=== PATIENT | female | born 1940 | race Caucasian/White ===

== ENCOUNTER 2024-02-11 09:03 | Inpatient (IN) | payer MEDICARE, OTHER ==
[2024-02-11] MEDS: Sodium Chloride 0.9% 10 ML Syringe FLUSH SCH ×2 (15:41→16:16)
[2024-02-11] MEDS ORDERED: Bisacodyl 10 MG Supp RECTAL PRN (15:47)
[2024-02-11] MEDS ORDERED: Nystatin Topical Powder 15 GM Bottle TOP PRN (15:47)
[2024-02-11] MEDS ORDERED: Mineral Oil/Petrolatum/Phenylephrine/Shark Liver Oil Oint 57 GM Tube RECTAL PRN (16:07)
[2024-02-11] MEDS ORDERED: Naloxone 0.4 MG/ML SDV IVPUSH PRN (16:11)
[2024-02-11] MEDS: Diclofenac Sodium 1% Gel 100 GM Tube TOP SCH (16:16)
[2024-02-11] MEDS: Gabapentin 300 MG Cap PO SCH (16:17)
[2024-02-11] MEDS: oxyCODONE 5 MG Tab PO PRN (16:29)
[2024-02-11] MEDS ORDERED: Non-Formulary Medication 1 Each TOP PRN (16:48)
[2024-02-11] MEDS: Aspirin 81 MG Tab.Chew PO SCH (17:36)
[2024-02-11] MEDS ORDERED: RIFAMPIN 300 MG PO SCH (18:00)
[2024-02-11] MEDS: ClonazePAM 0.5 MG Tab PO PRN (19:42)
[2024-02-11] MEDS: Escitalopram 10 MG Tab PO SCH (19:43)
[2024-02-11] MEDS: atorvaSTATin 20 MG Tab PO SCH (19:43)
[2024-02-11] MEDS: Amitriptyline 25 MG Tab PO SCH (19:43)
[2024-02-11] MEDS: Rifampin 150 MG Cap PO SCH (19:52)
[2024-02-12] MEDS: Timolol Maleate 0.5% Ophth Soln 5 ML Bottle EYEBOTH SCH (07:31)
[2024-02-12] MEDS: Hydrochlorothiazide 25 MG Tab PO SCH (07:32)
[2024-02-12] MEDS: Potassium Chloride 10 MEQ Tab.ER PO SCH (07:35)
[2024-02-12] MEDS: Cholecalciferol (Vitamin D3) 25 MCG Tab PO SCH (07:39)
[2024-02-12] MEDS: Hydroxychloroquine 200 MG Tab PO SCH (07:40)
[2024-02-12] MEDS ORDERED: Non-Formulary Medication 1 Each TOP PRN (12:10)
[2024-02-12] MEDS: Sodium Chloride 0.9% 10 ML Syringe FLUSH PRN (16:09)
[2024-02-12] MEDS: LIDOCAINE 5% TOP PRN (16:09)
[2024-02-12] MEDS: Acetaminophen 325 MG Tab PO PRN (19:14)
[2024-02-12] MEDS: Atropine/Diphenoxylate 0.025-2.5 MG Tab PO PRN (19:26)
[2024-02-13] MEDS: oxyCODONE 5 MG Tab PO ONE (17:12)
[2024-02-13] MEDS: Polyvinyl Alcohol 1.4% Ophth Soln 15 ML Bottle EYEBOTH PRN (17:38)
[2024-02-13] MEDS: Cyclobenzaprine 10 MG Tab PO SCH (17:40)
[2024-02-13] MEDS: ClonazePAM 0.5 MG Tab PO SCH ×2 (20:05→20:47)
[2024-02-13] MEDS: oxyCODONE 5 MG Tab PO SCH (20:05)
[2024-02-15] MEDS: oxyCODONE 5 MG Tab PO PRN (13:21)
[2024-02-15 19:27] LABS: BASOPHILS ABSOLUTE AUTO 0.11 K/uL (0.00-0.20); BASOPHILS PERCENT AUTO 1.1 % (0.0-2.0); EOSINOPHILS ABSOLUTE AUTO 0.18 K/uL (0.00-0.50); EOSINOPHILS PERCENT AUTO 1.8 % (0.0-5.0); HEMATOCRIT 28.2 % (34.0-46.0); HEMOGLOBIN 8.4 g/dL (11.7-15.5); LYMPHOCYTES ABSOLUTE AUTO 0.44 K/uL (0.50-3.50); LYMPHOCYTES PERCENT AUTO 4.3 % (10.0-50.0); MEAN CORPUSCULAR HEMOGLOBIN 23.6 pg (28.2-33.3); MEAN CORPUSCULAR HGB CONC 29.8 g/dL (31.7-36.0); MEAN CORPUSCULAR VOLUME 79.2 fL (84.0-98.0); MONOCYTES ABSOLUTE AUTO 1.27 K/uL (0.00-1.00); MONOCYTES PERCENT AUTO 12.4 % (2.0-14.0); NEUTROPHILS ABSOLUTE AUTO 8.24 K/uL (1.40-7.00); NEUTROPHILS PERCENT AUTO 80.4 % (45.0-80.0); PLATELET COUNT,PLT 550 K/uL (150-350); RED BLOOD CELL COUNT 3.56 M/uL (3.77-5.09); RED CELL DISTRIBUTION WIDTH 18.3 % (11.2-14.1); WHITE BLOOD CELL COUNT,WBC 10.2 K/uL (4.0-10.2)
[2024-02-15 20:01] LABS: BLOOD UREA NITROGEN,BUN 26 mg/dL (7-18); CALCIUM 8.3 mg/dL (8.5-10.1); CARBON DIOXIDE,CO2 33.6 mmol/L (21.0-32.0); CHLORIDE,CL 97 mmol/L (98-107); CREATININE 0.82 mg/dL (0.51-1.17); GLUCOSE RANDOM 123 mg/dL (70-99); POTASSIUM,K 3.5 mmol/L (3.5-5.1); SODIUM,NA 135 mmol/L (136-145)
[2024-02-15 20:03] LABS: ANION GAP 7.9 meq/L (7-15); ESTIMATED GFR 70 mL/min (>=60)
[2024-02-16] MEDS: Acetaminophen 325 MG Tab PO SCH (21:17)
[2024-02-17] MEDS: oxyCODONE 5 MG Tab PO PRN (19:08)
[2024-02-19] MEDS: Al and Mag Hydroxide/Diphenhydramine/Lidocaine/Simethicone 237 ML Bottle PO PRN ×2 (08:39→22:07)
[2024-02-19 10:05] LABS: BASOPHILS ABSOLUTE AUTO 0.02 K/uL (0.00-0.20); BASOPHILS PERCENT AUTO 0.2 % (0.0-2.0); EOSINOPHILS ABSOLUTE AUTO 0.23 K/uL (0.00-0.50); EOSINOPHILS PERCENT AUTO 2.8 % (0.0-5.0); HEMATOCRIT 30.6 % (34.0-46.0); LYMPHOCYTES ABSOLUTE AUTO 0.89 K/uL (0.50-3.50); LYMPHOCYTES PERCENT AUTO 10.8 % (10.0-50.0); MEAN CORPUSCULAR HEMOGLOBIN 23.5 pg (28.2-33.3); MEAN CORPUSCULAR HGB CONC 29.4 g/dL (31.7-36.0); MEAN CORPUSCULAR VOLUME 79.9 fL (84.0-98.0); MONOCYTES ABSOLUTE AUTO 0.75 K/uL (0.00-1.00); MONOCYTES PERCENT AUTO 9.1 % (2.0-14.0); NEUTROPHILS ABSOLUTE AUTO 6.36 K/uL (1.40-7.00); NEUTROPHILS PERCENT AUTO 77.1 % (45.0-80.0); PLATELET COUNT,PLT 551 K/uL (150-350); RED BLOOD CELL COUNT 3.83 M/uL (3.77-5.09); RED CELL DISTRIBUTION WIDTH 18.2 % (11.2-14.1); WHITE BLOOD CELL COUNT,WBC 8.3 K/uL (4.0-10.2)
[2024-02-19 10:23] LABS: INR 1.2 (0.9-1.1); PROTHROMBIN TIME 11.8 SEC (9.0-11.1)
[2024-02-19 10:26] LABS: ALANINE AMINOTRANSFERASE,ALT 9 U/L (12-78); ALBUMIN 2.4 g/dL (3.4-5.0); ALKALINE PHOSPHATASE 103 IU/L (46-116); ASPARTATE AMNIOTRANSFERASE,AST 25 U/L (15-37); BILIRUBIN TOTAL 0.2 mg/dL (0.2-1.0); BLOOD UREA NITROGEN,BUN 17 mg/dL (7-18); CALCIUM 8.4 mg/dL (8.5-10.1); CARBON DIOXIDE,CO2 37.3 mmol/L (21.0-32.0); CHLORIDE,CL 96 mmol/L (98-107); GLUCOSE RANDOM 112 mg/dL (70-99); MAGNESIUM 1.5 mg/dL (1.8-2.4); POTASSIUM,K 3.2 mmol/L (3.5-5.1); PROTEIN TOTAL,TP 7.6 g/dL (6.4-8.2); SODIUM,NA 137 mmol/L (136-145)
[2024-02-19 10:27] LABS: ANION GAP 6.9 meq/L (7-15); ESTIMATED GFR 85 mL/min (>=60)
[2024-02-19] MEDS: Potassium Bicarbonate/Cit Ac 20 MEQ Effervescent Tab PO ONE (14:02)
[2024-02-19] MEDS: Magnesium Chloride 64 MG Tab.ER PO SCH (14:05)
[2024-02-19] MEDS ORDERED: Phenol 1.4% Oral Spray 177 ML Bottle MUCMEM PRN (16:21)
[2024-02-19] MEDS: Magnesium Sulfate/Water 2 GM in Premix Bag 1 BAG IV ONE (17:04)
[2024-02-19] MEDS: Vitamin B Complex Tab PO SCH (17:05)
[2024-02-19] MEDS: Potassium Chloride 20 MEQ Tab.ER PO ONE (17:05)
[2024-02-20 10:03] LABS: BASOPHILS ABSOLUTE AUTO 0.02 K/uL (0.00-0.20); BASOPHILS PERCENT AUTO 0.3 % (0.0-2.0); EOSINOPHILS ABSOLUTE AUTO 0.24 K/uL (0.00-0.50); EOSINOPHILS PERCENT AUTO 3.2 % (0.0-5.0); HEMATOCRIT 28.4 % (34.0-46.0); HEMOGLOBIN 8.2 g/dL (11.7-15.5); LYMPHOCYTES ABSOLUTE AUTO 0.88 K/uL (0.50-3.50); LYMPHOCYTES PERCENT AUTO 11.7 % (10.0-50.0); MEAN CORPUSCULAR HEMOGLOBIN 23.1 pg (28.2-33.3); MEAN CORPUSCULAR HGB CONC 28.9 g/dL (31.7-36.0); MONOCYTES ABSOLUTE AUTO 0.77 K/uL (0.00-1.00); MONOCYTES PERCENT AUTO 10.3 % (2.0-14.0); NEUTROPHILS PERCENT AUTO 74.5 % (45.0-80.0); PLATELET COUNT,PLT 529 K/uL (150-350); RED BLOOD CELL COUNT 3.55 M/uL (3.77-5.09); RED CELL DISTRIBUTION WIDTH 17.9 % (11.2-14.1); WHITE BLOOD CELL COUNT,WBC 7.5 K/uL (4.0-10.2)
[2024-02-20 10:17] LABS: BLOOD UREA NITROGEN,BUN 24 mg/dL (7-18); CALCIUM 8.6 mg/dL (8.5-10.1); CARBON DIOXIDE,CO2 37.9 mmol/L (21.0-32.0); CHLORIDE,CL 98 mmol/L (98-107); CREATININE 0.65 mg/dL (0.51-1.17); GLUCOSE RANDOM 139 mg/dL (70-99); MAGNESIUM 1.7 mg/dL (1.8-2.4); POTASSIUM,K 3.2 mmol/L (3.5-5.1); SODIUM,NA 137 mmol/L (136-145)
[2024-02-20 10:18] LABS: ANION GAP 4.3 meq/L (7-15); ESTIMATED GFR 87 mL/min (>=60)
[2024-02-20] MEDS: Fluconazole 100 MG Tab PO ONE (11:11)
[2024-02-20] MEDS: Potassium Chloride 20 MEQ Tab.ER PO ONE (11:18)
[2024-02-21] MEDS: Nystatin Susp 100,000 Unit/ML 5 ML UD Cup PO SCH (19:07)
[2024-02-22 08:06] LABS: BASOPHILS ABSOLUTE AUTO 0.05 K/uL (0.00-0.20); BASOPHILS PERCENT AUTO 0.5 % (0.0-2.0); EOSINOPHILS ABSOLUTE AUTO 0.44 K/uL (0.00-0.50); EOSINOPHILS PERCENT AUTO 4.5 % (0.0-5.0); HEMATOCRIT 30.7 % (34.0-46.0); HEMOGLOBIN 8.9 g/dL (11.7-15.5); LYMPHOCYTES ABSOLUTE AUTO 1.41 K/uL (0.50-3.50); LYMPHOCYTES PERCENT AUTO 14.3 % (10.0-50.0); MEAN CORPUSCULAR HEMOGLOBIN 23.2 pg (28.2-33.3); MEAN CORPUSCULAR VOLUME 79.9 fL (84.0-98.0); MONOCYTES ABSOLUTE AUTO 1.22 K/uL (0.00-1.00); MONOCYTES PERCENT AUTO 12.4 % (2.0-14.0); NEUTROPHILS ABSOLUTE AUTO 6.71 K/uL (1.40-7.00); NEUTROPHILS PERCENT AUTO 68.3 % (45.0-80.0); PLATELET COUNT,PLT 574 K/uL (150-350); RED BLOOD CELL COUNT 3.84 M/uL (3.77-5.09); WHITE BLOOD CELL COUNT,WBC 9.8 K/uL (4.0-10.2)
[2024-02-22 08:26] LABS: ALANINE AMINOTRANSFERASE,ALT 12 U/L (12-78); ALBUMIN 2.3 g/dL (3.4-5.0); ALKALINE PHOSPHATASE 105 IU/L (46-116); ASPARTATE AMNIOTRANSFERASE,AST 26 U/L (15-37); BILIRUBIN TOTAL 0.1 mg/dL (0.2-1.0); BLOOD UREA NITROGEN,BUN 24 mg/dL (7-18); CALCIUM 9.3 mg/dL (8.5-10.1); CARBON DIOXIDE,CO2 36.4 mmol/L (21.0-32.0); CHLORIDE,CL 99 mmol/L (98-107); GLUCOSE RANDOM 97 mg/dL (70-99); MAGNESIUM 1.7 mg/dL (1.8-2.4); PROTEIN TOTAL,TP 7.9 g/dL (6.4-8.2); SODIUM,NA 136 mmol/L (136-145)
[2024-02-22 08:32] LABS: ANION GAP 4.6 meq/L (7-15); ESTIMATED GFR 85 mL/min (>=60)
[2024-02-22 12:55] LABS: APPEARANCE,URINE SLIGHTLY CLOUDY; BILIRUBIN,URINE NEGATIVE (NEGATIVE); COLOR,URINE YELLOW; GLUCOSE,URINE NEGATIVE (NEGATIVE); KETONES,URINE NEGATIVE (NEGATIVE); LEUKOCYTE ESTERASE,URINE NEGATIVE (NEGATIVE); NITRITE,URINE NEGATIVE (NEGATIVE); OCCULT BLOOD,URINE TRACE-INTACT (NEGATIVE); PH,URINE 5.5 (5.0-9.0); PROTEIN,URINE NEGATIVE (NEGATIVE); UROBILINOGEN,URINE 0.2 E.U./dL (0.2-1.0)
[2024-02-22 13:03] LABS: BACTERIA,URINE FEW /HPF (NONE TO FEW); EPITHELIAL CELLS,URINE RARE /LPF; RBC,URINE 0-5 /HPF; WBC,URINE 0-5 /HPF
[2024-03-01 09:07] LABS: BASOPHILS PERCENT AUTO 1.1 % (0.0-2.0); EOSINOPHILS ABSOLUTE AUTO 0.42 K/uL (0.00-0.50); EOSINOPHILS PERCENT AUTO 4.8 % (0.0-5.0); HEMATOCRIT 28.5 % (34.0-46.0); HEMOGLOBIN 8.3 g/dL (11.7-15.5); LYMPHOCYTES ABSOLUTE AUTO 1.35 K/uL (0.50-3.50); LYMPHOCYTES PERCENT AUTO 15.5 % (10.0-50.0); MEAN CORPUSCULAR HEMOGLOBIN 23.1 pg (28.2-33.3); MEAN CORPUSCULAR HGB CONC 29.1 g/dL (31.7-36.0); MEAN CORPUSCULAR VOLUME 79.2 fL (84.0-98.0); MONOCYTES ABSOLUTE AUTO 1.25 K/uL (0.00-1.00); MONOCYTES PERCENT AUTO 14.4 % (2.0-14.0); NEUTROPHILS ABSOLUTE AUTO 5.59 K/uL (1.40-7.00); NEUTROPHILS PERCENT AUTO 64.2 % (45.0-80.0); PLATELET COUNT,PLT 454 K/uL (150-350); RED CELL DISTRIBUTION WIDTH 17.7 % (11.2-14.1); WHITE BLOOD CELL COUNT,WBC 8.7 K/uL (4.0-10.2)
[2024-03-01 09:24] LABS: CALCIUM 9.1 mg/dL (8.5-10.1); CARBON DIOXIDE,CO2 31.5 mmol/L (21.0-32.0); CREATININE 0.77 mg/dL (0.51-1.17); EST CRCL DRUG DOSING (CG) 39.07 mL/min; MAGNESIUM 1.7 mg/dL (1.8-2.4); POTASSIUM,K 3.4 mmol/L (3.5-5.1)
[2024-03-01 09:28] LABS: ANION GAP 7.9 meq/L (7-15)
[2024-03-08] MEDS: Magnesium Chloride 64 MG Tab.ER PO SCH (13:20)
[2024-03-08] MEDS: Menthol 10%/Methyl Salicylate 15% 85 GM Tube TOP PRN (16:39)
[2024-03-09 08:02] LABS: BASOPHILS ABSOLUTE AUTO 0.08 K/uL (0.00-0.20); EOSINOPHILS ABSOLUTE AUTO 0.43 K/uL (0.00-0.50); EOSINOPHILS PERCENT AUTO 5.5 % (0.0-5.0); HEMATOCRIT 28.2 % (34.0-46.0); HEMOGLOBIN 8.2 g/dL (11.7-15.5); LYMPHOCYTES PERCENT AUTO 12.9 % (10.0-50.0); MEAN CORPUSCULAR HGB CONC 29.1 g/dL (31.7-36.0); MEAN CORPUSCULAR VOLUME 79.2 fL (84.0-98.0); MONOCYTES ABSOLUTE AUTO 0.91 K/uL (0.00-1.00); MONOCYTES PERCENT AUTO 11.7 % (2.0-14.0); NEUTROPHILS ABSOLUTE AUTO 5.33 K/uL (1.40-7.00); NEUTROPHILS PERCENT AUTO 68.9 % (45.0-80.0); PLATELET COUNT,PLT 411 K/uL (150-350); RED BLOOD CELL COUNT 3.56 M/uL (3.77-5.09); RED CELL DISTRIBUTION WIDTH 17.7 % (11.2-14.1); WHITE BLOOD CELL COUNT,WBC 7.8 K/uL (4.0-10.2)
[2024-03-09 08:07] LABS: CARBON DIOXIDE,CO2 34.7 mmol/L (21.0-32.0); CREATININE 0.65 mg/dL (0.51-1.17); EST CRCL DRUG DOSING (CG) 46.28 mL/min; MAGNESIUM 1.6 mg/dL (1.8-2.4); POTASSIUM,K 3.2 mmol/L (3.5-5.1)
[2024-03-09 08:23] LABS: ANION GAP 7.5 meq/L (7-15)
[2024-03-10] MEDS: Potassium Chloride 10 MEQ Tab.ER PO SCH (11:02)
[2024-03-11] MEDS: Nystatin Susp 100,000 Unit/ML 5 ML UD Cup PO SCH (11:42)
[2024-03-15 09:30] LABS: BASOPHILS ABSOLUTE AUTO 0.13 K/uL (0.00-0.20); BASOPHILS PERCENT AUTO 1.9 % (0.0-2.0); EOSINOPHILS ABSOLUTE AUTO 0.62 K/uL (0.00-0.50); EOSINOPHILS PERCENT AUTO 9.1 % (0.0-5.0); HEMATOCRIT 30.6 % (34.0-46.0); HEMOGLOBIN 8.7 g/dL (11.7-15.5); LYMPHOCYTES ABSOLUTE AUTO 1.12 K/uL (0.50-3.50); LYMPHOCYTES PERCENT AUTO 16.4 % (10.0-50.0); MEAN CORPUSCULAR HEMOGLOBIN 22.5 pg (28.2-33.3); MEAN CORPUSCULAR HGB CONC 28.4 g/dL (31.7-36.0); MEAN CORPUSCULAR VOLUME 79.1 fL (84.0-98.0); MONOCYTES ABSOLUTE AUTO 0.87 K/uL (0.00-1.00); MONOCYTES PERCENT AUTO 12.7 % (2.0-14.0); NEUTROPHILS ABSOLUTE AUTO 4.09 K/uL (1.40-7.00); NEUTROPHILS PERCENT AUTO 59.9 % (45.0-80.0); PLATELET COUNT,PLT 396 K/uL (150-350); RED BLOOD CELL COUNT 3.87 M/uL (3.77-5.09); RED CELL DISTRIBUTION WIDTH 17.4 % (11.2-14.1); WHITE BLOOD CELL COUNT,WBC 6.8 K/uL (4.0-10.2)
[2024-03-15 09:43] LABS: ANION GAP 4.6 meq/L (7-15); CALCIUM 9.1 mg/dL (8.5-10.1); CARBON DIOXIDE,CO2 35.7 mmol/L (21.0-32.0); CREATININE 0.72 mg/dL (0.51-1.17); EST CRCL DRUG DOSING (CG) 41.78 mL/min; MAGNESIUM 1.7 mg/dL (1.8-2.4); POTASSIUM,K 3.3 mmol/L (3.5-5.1)
[2024-03-16 08:39] VITALS: BP 124/56; PULSE 83
== END 2024-03-16 12:50 | disposition home or self-care (01) | DRG 949 ==
LOC: LL.MS 14:57 → UNDODISIN 02-12 12:06
PROVIDERS: ADMIT Emergency Medicine; ATTEND Family Medicine
PROC: 8E0ZXY6 Isolation (ICD-10-PCS; principal; 2024-02-15)
DX: T84.53XD Infection and inflammatory reaction due to internal right knee prosthesis, subsequent encounter (principal); U07.1 COVID-19; F03.93 Unspecified dementia, unspecified severity, with mood disturbance; M00.9 Pyogenic arthritis, unspecified; F03.94 Unspecified dementia, unspecified severity, with anxiety; B37.0 Candidal stomatitis; H91.90 Unspecified hearing loss, unspecified ear; I25.10 Atherosclerotic heart disease of native coronary artery without angina pectoris; E78.00 Pure hypercholesterolemia, unspecified; I10 Essential (primary) hypertension; J44.9 Chronic obstructive pulmonary disease, unspecified; K59.09 Other constipation; K21.9 Gastro-esophageal reflux disease without esophagitis; M19.90 Unspecified osteoarthritis, unspecified site; M06.9 Rheumatoid arthritis, unspecified; G43.909 Migraine, unspecified, not intractable, without status migrainosus; G62.9 Polyneuropathy, unspecified; Z96.653 Presence of artificial knee joint, bilateral; R15.9 Full incontinence of feces; E78.5 Hyperlipidemia, unspecified; L30.4 Erythema intertrigo; D64.9 Anemia, unspecified; G89.4 Chronic pain syndrome; R13.10 Dysphagia, unspecified; N81.4 Uterovaginal prolapse, unspecified; K12.0 Recurrent oral aphthae; I25.2 Old myocardial infarction; Z86.711 Personal history of pulmonary embolism; Z87.440 Personal history of urinary (tract) infections; Z98.49 Cataract extraction status, unspecified eye; Z90.89 Acquired absence of other organs; Z90.710 Acquired absence of both cervix and uterus; Z98.1 Arthrodesis status; Z95.2 Presence of prosthetic heart valve; Z88.8 Allergy status to other drugs, medicaments and biological substances; Z88.0 Allergy status to penicillin; Z91.041 Radiographic dye allergy status; Z79.899 Other long term (current) drug therapy; Z79.82 Long term (current) use of aspirin; Y83.1 Surgical operation with implant of artificial internal device as the cause of abnormal reaction of the patient, or of later complication, without mention of misadventure at the time of the procedure
CPT/HCPCS: 36415; 51798; 71046; 80048; 80053; 81001; 83735; 85025; 85610; 86140; 87040; 97110-GP; 97162-GP; 97165-GO; 97530-GO; 97530-GP; 97535-GO; 99306; 99307; 99316; A9270-GY; J0690; J3475; J3490; U0002